=== PATIENT | male | born 1975 | race Caucasian/White ===

== ENCOUNTER 2021-03-18 09:44 | Emergency (ER) | payer MEDICAID ==
[2021-03-18] MEDS ORDERED: Oxymetazoline 0.05% Nasal Spray 30 ML Bottle NAS ONE (10:17)
[2021-03-18] MEDS ORDERED: Sodium Chloride 0.9% 10 ML Syringe FLUSH PRN (10:27)
--- NOTE | 2021-03-18 10:29 | EDM.PDOC ---
ED HPI GENERAL MEDICAL PROBLEM - General Chief Complaint: ENT Problem Stated Complaint: BLOODY NOSE Time Seen by Provider: 03/18/21 10:17 Source of Information: Reports: Patient, RN Notes Reviewed History Limitations: Reports: No Limitations - History of Present Illness INITIAL COMMENTS - FREE TEXT/NARRATIVE: 46-year-old gentleman presents emergency department day complaint of nosebleed, he states that nosebleeds all of his life is usually able to get him to stop himself. However this particular event started last night he has been dealing with pressure and trying to get it stopped by himself but he has been unsuccessful. He takes no blood thinners he is never visited with the ear nose and throat he does feel lightheaded and weak - Related Data Allergies Allergy/AdvReac Type Severity Reaction Status Date / Time acetaminophen Allergy Unknown Cannot Verified 03/18/21 09:55 Remember Home Meds: Home Meds Multivitamin with Minerals [Multiple Vitamin] 1 tab PO DAILY 01/28/21 [History] Furosemide 40 mg PO DAILY 03/18/21 [History] Spironolactone [Aldactone] 50 mg PO DAILY 03/18/21 [History] Past Medical History HEENT History: Reports: Impaired Vision Cardiovascular History: Reports: Heart Failure Respiratory History: Reports: SOB Gastrointestinal History: Reports: Cirrhosis, Other (See Below) Other Gastrointestinal History: accities Musculoskeletal History: Reports: Fracture Psychiatric History: Reports: Anxiety - Past Surgical History HEENT Surgical History: Reports: None Respiratory Surgical History: Reports: None GI Surgical History: Reports: None Musculoskeletal Surgical History: Reports: Other (See Below) Other Musculoskeletal Surgeries/Procedures:: left leg pins plates and rods. Rods removed once healed Social & Family History - Tobacco Use Tobacco Use Status *Q: Never Tobacco User - Caffeine Use Caffeine Use: Reports: None - Recreational Drug Use Recreational Drug Use: No ED ROS ENT - Review of Systems Review Of Systems: See Below Constitutional: Reports: No Symptoms HEENT: Reports: Nosebleed Respiratory: Reports: No Symptoms Cardiovascular: Reports: Lightheadedness GI/Abdominal: Reports: Nausea ED EXAM, ENT - Physical Exam Exam: See Below Exam Limited By: No Limitations General Appearance: Alert, Mild Distress Nose: Active Bleeding, Dried Blood Mouth/Throat: Normal Inspection, Normal Gums, Normal Lips, Normal Oropharynx, Normal Teeth Respiratory/Chest: No Respiratory Distress ED ENT PROCEDURES - Epistaxis Procedure Indication: Epistaxis Recent anticoagulants/antiplatlets: No Uncontrolled HTN: No Recent septal/nasal surgery: No Site of bleeding: Right Nare Clearing of clots: Patient Blew Nose Topical Meds: Phenylephrine Anterior Packing: Nasal Tampon Posterior packing: Long Inflatable Nasal Tampon Complications: No Course - Vital Signs Last Recorded V/S: Last Vital Signs Temp 97.9 F 03/18/21 14:24 Pulse 78 03/18/21 14:24 Resp 15 03/18/21 14:24 BP 132/99 H 03/18/21 14:24 Pulse Ox 100 03/18/21 14:24 - Orders/Labs/Meds Orders: Active Orders 24 hr Category Date Time Status Peripheral IV Care [RC] . DIRECTED Care 03/18/21 10:27 Active Sodium Chloride 0.9% [Normal Saline] 1,000 ml Med 03/18/21 10:30 Active IV ASDIRECTED Sodium Chloride 0.9% [Saline Flush] Med 03/18/21 10:27 Active 10 ml FLUSH ASDIRECTED PRN Peripheral IV Insertion Adult [OM.PC] Urgent Oth 03/18/21 10:27 Ordered Transfuse Red Blood Cells [COMM] Stat Oth 03/18/21 12:10 Ordered Medication Orders Sodium Chloride (Normal Saline) 1,000 mls @ 999 mls/hr IV ASDIRECTED [facility] Last Admin: 03/18/21 10:35 Dose: 999 mls/hr Documented by: RUBEN Sodium Chloride (Sodium Chloride 0.9% 10 Ml Syringe) 10 ml FLUSH ASDIRECTED PRN PRN Reason: Keep Vein Open Last Admin: 03/18/21 10:35 Dose: 10 ml Documented by: [id number] Labs: Laboratory Tests 03/18/21 03/18/21 03/18/21 Range/Units 10:52 10:52 11:00 WBC 4.0 L (4.5-11.0) K/uL RBC 2.05 L (4.30-5.90) M/uL Hgb 7.2 L D (12.0-15.0) g/dL Hct 21.1 L (40.0-54.0) % MCV 103 H (80-98) fL MCH 35 H (27-31) pg MCHC 34 (32-36) % Plt Count 32 L (150-400) K/uL PT 16.0 H (9.2-10.6) sec INR 1.6 Sodium (140-148) mmol/L Potassium (3.6-5.2) mmol/L Chloride (100-108) mmol/L Carbon Dioxide (21-32) mmol/L Anion Gap (5.0-14.0) mmol/L BUN (7-18) mg/dL Creatinine (0.8-1.3) mg/dL Est Cr Clr Drug Dosing mL/min Estimated GFR (MDRD) (>60) Glucose (74-106) mg/dL Lactic Acid 1.8 (0.4-2.0) mmol/L Calcium (8.5-10.1) mg/dL Blood Type Gel Antibody Screen Crossmatch 03/18/21 03/18/21 Range/Units 11:00 12:10 WBC (4.5-11.0) K/uL RBC (4.30-5.90) M/uL Hgb (12.0-15.0) g/dL Hct (40.0-54.0) % MCV (80-98) fL MCH (27-31) pg MCHC (32-36) % Plt Count (150-400) K/uL PT (9.2-10.6) sec INR Sodium 120 L (140-148) mmol/L Potassium 3.4 L (3.6-5.2) mmol/L Chloride 84 L (100-108) mmol/L Carbon Dioxide 29 (21-32) mmol/L Anion Gap 10.4 (5.0-14.0) mmol/L BUN 21 H (7-18) mg/dL Creatinine 0.9 (0.8-1.3) mg/dL Est Cr Clr Drug Dosing 100.28 mL/min Estimated GFR (MDRD) > 60 (>60) Glucose 139 H (74-106) mg/dL Lactic Acid (0.4-2.0) mmol/L Calcium 8.5 (8.5-10.1) mg/dL Blood Type O POSITIVE Gel Antibody Screen Negative Crossmatch See Detail Meds: Medications Generic Name Dose Route Start Last Admin Trade Name Freq PRN Reason Stop Dose Admin Sodium Chloride 1,000 mls @ 999 mls/hr 03/18/21 10:30 03/18/21 10:35 Normal Saline IV 999 mls/hr ASDIRECTED MARYELLEN Administration Sodium Chloride 10 ml 03/18/21 10:27 03/18/21 10:35 Sodium Chloride 0.9% 10 Ml Syringe FLUSH 10 ml ASDIRECTED PRN Administration Keep Vein Open Discontinued Medications Generic Name Dose Route Start Last Admin Trade Name Freq PRN Reason Stop Dose Admin Oxymetazoline HCl 1 ml 03/18/21 10:17 03/18/21 10:27 Oxymetazoline 0.05% Nasal [place] 30 Ml Bottle CARLOS 03/18/21 10:18 1 ml ONETIME ONE Administration Departure - Departure Time of Disposition: 14:39 Disposition: Home, Self-Care 01 Condition: Fair Clinical Impression: Epistaxis - Discharge Information Instructions: Nosebleed, Adult, [id number] Referrals: PCP,None [Primary Care Provider] - Forms: ED Department Discharge Additional Instructions: Continue on your current medications, add or remove air as needed for comfort and bleeding control, recommend balloon removal in 48 hours follow-up with your primary care for further evaluation, keep your appointment with gastroenterology tomorrow call or return to the emergency department worsening of symptoms Sepsis Event Note (ED) - Evaluation Sepsis Screening Result: No Definite Risk - Focused Exam Vital Signs: Vital Signs Temp Temp Pulse Resp BP Pulse Ox 03/18/21 14:24 97.9 F 78 15 132/99 H 100 03/18/21 14:08 97.9 F 87 15 127/80 100 03/18/21 13:53 97.8 F 81 15 126/82 100 03/18/21 13:38 97.8 F 84 15 125/76 100 03/18/21 13:24 98 F 90 15 121/78 03/18/21 11:36 87 16 124/79 100 03/18/21 11:08 93 16 108/74 100 03/18/21 10:40 99/65 03/18/21 10:01 97.2 F 136 H 18 105/68 98 03/18/21 09:52 97.2 F 136 H 18 105/68 98 - My Orders Last 24 Hours: My Active Orders 03/18/21 10:27 Peripheral IV Care [RC] . DIRECTED Sodium Chloride 0.9% [Saline Flush] 10 ml FLUSH ASDIRECTED PRN Peripheral IV Insertion Adult [OM.PC] Urgent 03/18/21 10:30 Sodium Chloride 0.9% [Normal Saline] 1,000 ml IV ASDIRECTED 03/18/21 12:10 Transfuse Red Blood Cells [COMM] Stat - Assessment/Plan Last 24 Hours: My Active Orders 03/18/21 10:27 Peripheral IV Care [RC] . DIRECTED Sodium Chloride 0.9% [Saline Flush] 10 ml FLUSH ASDIRECTED PRN Peripheral IV Insertion Adult [OM.PC] Urgent 03/18/21 10:30 Sodium Chloride 0.9% [Normal Saline] 1,000 ml IV ASDIRECTED 03/18/21 12:10 Transfuse Red Blood Cells [COMM] Stat Plan: Assessment Acuity = acute Site and laterality = epistaxis complicated the patient with known history of alcohol cirrhosis Etiology = unknown Manifestations = acute anemia Location of injury = Home Lab values = hemoglobin low at 4.0 consistent with leukopenia hemoglobin low at 7.2 consistent with acute anemia platelets low at 32 consistent with thrombocytopenia sodium low at 120 consistent with hyponatremia potassium low at 3.4 consistent with hypokalemia lactic acid normal 1.8 Plan He did admit to me that he was having some bright red blood per rectum he attributes this to his hemorrhoids he has never had a colonoscopy. I think the bleeding is multifactorial causing the anemia bright red blood per rectum acute epistaxis for over 12 hours in combination with the extremely low platelets put him at severe risk for bleeding. 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
[2021-03-18] MEDS ORDERED: Sodium Chloride 0.9% 1,000 ML IV SCH (10:30)
== END 2021-03-18 15:34 | disposition home or self-care (01) ==
LOC: JP.ED 09:44
DX: R04.0 Epistaxis (principal); I50.9 Heart failure, unspecified; Z88.6 Allergy status to analgesic agent
CPT/HCPCS: 36415; 36430; 80048; 83605; 85027; 85610; 86850; 86900; 86901; 86920; 86922; 99284; A9270; J7030; P9016

== ENCOUNTER 2021-04-06 15:16 | Emergency (ER) | payer MEDICAID ==
[2021-04-06] MEDS: Silver Nitrate Applicator Each ONE (16:40)
[2021-04-06] MEDS: Oxymetazoline 0.05% Nasal Spray 30 ML Bottle NAS ONE (16:50)
[2021-04-06] MEDS: Silver Nitrate Applicator Each TOP ONE (17:48)
== END 2021-04-06 17:49 | disposition home or self-care (01) ==
LOC: JP.ED 15:16
DX: R04.0 Epistaxis (principal); I50.9 Heart failure, unspecified; Z88.6 Allergy status to analgesic agent
CPT/HCPCS: 30901; 36415; 85027; 86850; 86900; 86901; 99282; 99283; A9270-GY

== ENCOUNTER 2021-08-14 09:04 | Emergency (ER) | payer MEDICAID ==
[2021-08-14] MEDS ORDERED: Ondansetron 4 MG/2 ML SDV ONE (09:43)
[2021-08-14] MEDS ORDERED: Ondansetron 4 MG/2 ML SDV IVPUSH ONE (09:44)
[2021-08-14] MEDS ORDERED: Sodium Chloride 0.9% 250 ML IV SCH (09:45)
[2021-08-14] MEDS ORDERED: LORazepam 2 MG/ML SDV IVPUSH ONE (09:46)
[2021-08-14] MEDS ORDERED: Sodium Chloride 0.9% 1,000 ML IV SCH ×2 (10:15→11:15)
[2021-08-14 10:57] LABS: CORONAVIRUS COVID-19 NAA NEGATIVE (NEGATIVE)
[2021-08-14] MEDS ORDERED: Potassium Chloride 20 MEQ Tab.ER PO ONE (12:20)
== END 2021-08-14 12:45 | disposition home or self-care (01) ==
LOC: JP.ED 09:04
DX: K74.60 Unspecified cirrhosis of liver (principal); E86.0 Dehydration; R79.89 Other specified abnormal findings of blood chemistry; Z88.8 Allergy status to other drugs, medicaments and biological substances; Z20.822 Contact with and (suspected) exposure to COVID-19
CPT/HCPCS: 0241U; 36415; 71045; 71045-26; 80053; 83690; 85025; 93005; 93010; 96361; 96374; 96375; 99284; 99284-25; J2060; J2405; J7030; J7050

== ENCOUNTER 2022-07-19 09:25 | Emergency (ER) | payer MEDICAID ==
[2022-07-19 10:21] LABS: BASOPHILS PERCENT AUTO 0.2 % (0.1-1.3); HEMATOCRIT 22.5 % (38.4-49.7); HEMOGLOBIN 7.3 g/dL (12.9-16.9); IMMATURE GRAN ABSOLUTE AUTO 0.03 K/uL (0.00-0.23); IMMATURE GRAN PERCENT AUTO 0.6 % (0.0-0.7); LYMPHOCYTES ABSOLUTE AUTO 0.54 K/uL (0.8-3.3); LYMPHOCYTES PERCENT AUTO 11.7 % (11.4-47.7); MEAN CORPUSCULAR HGB CONC 32.4 g/dL (31.6-35.5); MEAN CORPUSCULAR VOLUME 101.8 fL (81.4-99.0); MONOCYTES ABSOLUTE AUTO 0.47 K/uL (0.20-0.90); MONOCYTES PERCENT AUTO 10.2 % (3.3-12.6); NEUTROPHILS ABSOLUTE AUTO 3.57 K/uL (1.0-7.6); NEUTROPHILS PERCENT AUTO 77.3 % (40.0-78.1); RED BLOOD CELL COUNT 2.21 M/uL (4.14-5.76); WHITE BLOOD CELL COUNT,WBC 4.6 K/uL (3.2-11.0)
[2022-07-19 10:23] LABS: BASOPHILS ABSOLUTE AUTO 0.01 K/uL (0.00-0.10); PLATELET COUNT,PLT 27 K/uL (130-375)
[2022-07-19 10:36] LABS: INR 1.3; PROTHROMBIN TIME 12.5 sec (9.2-10.6)
[2022-07-19 10:43] LABS: A/G RATIO 0.7 (1.2-2.2); ALANINE AMINOTRANSFERASE,ALT 29 U/L (12-78); ALBUMIN 2.9 g/dL (3.4-5.0); ALKALINE PHOSPHATASE 180 U/L (46-116); ASPARTATE AMNIOTRANSFERASE,AST 70 U/L (15-37); BILIRUBIN TOTAL 1.5 mg/dL (0.2-1.0); BLOOD UREA NITROGEN,BUN 9 mg/dL (7-18); CALCIUM 8.5 mg/dL (8.5-10.1); CARBON DIOXIDE,CO2 27 mmol/L (21-32); CHLORIDE,CL 95 mmol/L (100-108); CREATININE 0.8 mg/dL (0.8-1.3); EST CRCL DRUG DOSING (CG) 111.63 mL/min; ESTIMATED GFR 111 mL/min (>60); GLUCOSE RANDOM 119 mg/dL (74-106); POTASSIUM,K 3.7 mmol/L (3.6-5.2); PROTEIN TOTAL,TP 6.9 g/dL (6.4-8.2); SODIUM,NA 132 mmol/L (140-148)
[2022-07-19 10:48] LABS: ANION GAP 13.7 mmol/L (5.0-14.0)
[2022-07-19 10:58] LABS: CORONAVIRUS COVID-19 NAA NEGATIVE (NEGATIVE); INFLUENZA A NAA NEGATIVE (NEGATIVE); INFLUENZA B NAA NEGATIVE (NEGATIVE); RESPIRATORY SYNCYTIAL VIR NAA NEGATIVE (NEGATIVE)
== END 2022-07-19 11:42 | disposition home or self-care (01) ==
LOC: JP.ED 09:25
DX: D69.6 Thrombocytopenia, unspecified (principal); F10.20 Alcohol dependence, uncomplicated; Z88.8 Allergy status to other drugs, medicaments and biological substances; Z20.822 Contact with and (suspected) exposure to COVID-19; Y90.0 Blood alcohol level of less than 20 mg/100 ml
CPT/HCPCS: 0241U; 36415; 80053; 80307; 85025; 85610; 99283

== ENCOUNTER 2022-08-26 16:06 | Emergency (ER) | payer OTHER, MEDICAID ==
[2022-08-26] MEDS ORDERED: Sodium Chloride 0.9% 10 ML Syringe FLUSH PRN (16:09)
[2022-08-26] MEDS ORDERED: HYDROmorphone 1 MG/ML Syringe IVPUSH ONE ×2 (16:09→17:08)
[2022-08-26 16:17] LABS: BASOPHILS PERCENT AUTO 0.3 % (0.1-1.3); EOSINOPHILS PERCENT AUTO 0.6 % (0.0-5.4); HEMOGLOBIN 7.4 g/dL (12.9-16.9); IMMATURE GRAN PERCENT AUTO 0.6 % (0.0-0.7); LYMPHOCYTES ABSOLUTE AUTO 1.13 K/uL (0.8-3.3); LYMPHOCYTES PERCENT AUTO 35.4 % (11.4-47.7); MEAN CORPUSCULAR HEMOGLOBIN 27.2 pg (31.6-35.5); MEAN CORPUSCULAR HGB CONC 30.8 g/dL (31.6-35.5); MEAN CORPUSCULAR VOLUME 88.2 fL (81.4-99.0); MONOCYTES PERCENT AUTO 9.4 % (3.3-12.6); NEUTROPHILS ABSOLUTE AUTO 1.71 K/uL (1.0-7.6); NEUTROPHILS PERCENT AUTO 53.7 % (40.0-78.1); PLATELET COUNT,PLT 33 K/uL (130-375); RED BLOOD CELL COUNT 2.72 M/uL (4.14-5.76); WHITE BLOOD CELL COUNT,WBC 3.2 K/uL (3.2-11.0)
[2022-08-26 16:22] LABS: BASOPHILS ABSOLUTE AUTO 0.01 K/uL (0.00-0.10); EOSINOPHILS ABSOLUTE AUTO 0.02 K/uL (0.00-0.40); IMMATURE GRAN ABSOLUTE AUTO 0.02 K/uL (0.00-0.23)
[2022-08-26 16:40] LABS: A/G RATIO 0.8 (1.2-2.2); ALANINE AMINOTRANSFERASE,ALT 35 U/L (12-78); ALBUMIN 3.4 g/dL (3.4-5.0); ALKALINE PHOSPHATASE 142 U/L (46-116); ASPARTATE AMNIOTRANSFERASE,AST 60 U/L (15-37); BILIRUBIN TOTAL 1.1 mg/dL (0.2-1.0); BLOOD UREA NITROGEN,BUN 8 mg/dL (7-18); CALCIUM 8.3 mg/dL (8.5-10.1); CARBON DIOXIDE,CO2 25 mmol/L (21-32); CHLORIDE,CL 102 mmol/L (100-108); CREATININE 0.9 mg/dL (0.8-1.3); ESTIMATED GFR 107 mL/min (>60); GLUCOSE RANDOM 95 mg/dL (74-106); INR 1.3; POTASSIUM,K 3.6 mmol/L (3.6-5.2); PROTEIN TOTAL,TP 7.5 g/dL (6.4-8.2); PROTHROMBIN TIME 12.5 sec (9.2-10.6); PTT,PARTIAL THROMBOPLSTIN TIME 26.7 sec (21.8-27.3); SODIUM,NA 139 mmol/L (140-148)
[2022-08-26 16:41] LABS: ANION GAP 15.6 mmol/L (5.0-14.0)
== END 2022-08-26 17:30 ==
LOC: JP.ED 16:06
DX: S72.002A Fracture of unspecified part of neck of left femur, initial encounter for closed fracture (principal); S70.12XA Contusion of left thigh, initial encounter; S70.02XA Contusion of left hip, initial encounter; S50.312A Abrasion of left elbow, initial encounter; I50.9 Heart failure, unspecified; Z88.6 Allergy status to analgesic agent; Z79.899 Other long term (current) drug therapy; Z20.822 Contact with and (suspected) exposure to COVID-19; W11.XXXA Fall on and from ladder, initial encounter
CPT/HCPCS: 36415; 71045; 72192; 80053; 85025; 85610; 85730; 86850; 86900; 86901; 87635; 96374; 99285; J1170; U0002

== ENCOUNTER 2024-10-03 09:45 | Inpatient (IN) | payer MEDICAID ==
[2024-10-03 10:33] LABS: RED BLOOD CELL COUNT 2.25 M/uL (4.14-5.76); WHITE BLOOD CELL COUNT,WBC 3.0 K/uL (3.2-11.0)
[2024-10-03 10:41] LABS: INR 1.6
[2024-10-03 10:48] LABS: A/G RATIO 0.6 (1.2-2.2); ALANINE AMINOTRANSFERASE,ALT 21 U/L (12-78); ASPARTATE AMNIOTRANSFERASE,AST 54 U/L (15-37); BILIRUBIN TOTAL 5.2 mg/dL (0.2-1.0); BLOOD UREA NITROGEN,BUN 7 mg/dL (7-18); CARBON DIOXIDE,CO2 18 mmol/L (21-32); CHLORIDE,CL 103 mmol/L (100-108); CREATININE 0.8 mg/dL (0.8-1.3); EST CRCL DRUG DOSING (CG) 109.25 mL/min; ESTIMATED GFR 109 mL/min (>60); GLUCOSE RANDOM 89 mg/dL (74-106); POTASSIUM,K 3.4 mmol/L (3.6-5.2); PROTEIN TOTAL,TP 5.6 g/dL (6.4-8.2); SODIUM,NA 132 mmol/L (140-148)
[2024-10-03 10:49] LABS: LACTIC ACID 1.4 mmol/L (0.4-2.0)
[2024-10-03] MEDS: metroNIDAZOLE/Normal Saline 500 MG in Premix Bag 1 BAG IV SCH (10:50)
[2024-10-03] MEDS: Lactated Ringers 1,000 ML IV SCH (10:51)
[2024-10-03 11:09] LABS: TROPONIN I HIGH SENSITIVITY 9.8 pg/mL (<=60.3)
[2024-10-03 11:10] LABS: PRO B-TYPE NATRIUR PEPT,BNPPRO 853.0 pg/mL (5-125)
[2024-10-03 11:14] LABS: PLATELET COUNT,PLT 19 K/uL (130-375)
[2024-10-03 11:16] LABS: BAND ABSOLUTE MAN 0.12 K/uL; BAND PERCENT MAN 4 % (5-11); LYMPHOCYTES ABSOLUTE MAN 0.54 K/uL (0.8-3.3); LYMPHOCYTES PERCENT MAN 18 % (24-44); NEUTROPHILS ABSOLUTE MAN 2.34 K/uL (1.0-7.6); SEG NEUTROPHILS PERCENT MAN 78 % (36-66)
[2024-10-03 14:50] LABS: IRON,FE 48 ug/dL (65-175); PERCENT FE SATURATION 27 % (20-55)
[2024-10-03] MEDS ORDERED: Ondansetron 4 MG Tab.DIS PO PRN (15:58)
[2024-10-03] MEDS ORDERED: Sennosides/Docusate Sodium 50-8.6 MG Tab PO PRN (15:58)
[2024-10-03] MEDS ORDERED: Ondansetron 4 MG/2 ML SDV IV PRN (15:58)
[2024-10-03] MEDS ORDERED: Magnesium Hydroxide 400 MG/5 ML Susp 30 ML Cup PO PRN (15:58)
[2024-10-03] MEDS: Potassium Chloride 20 MEQ Tab.ER PO ONE (16:46)
[2024-10-03] MEDS: Lactulose Soln 10 GM/15 ML 15 ML UD Cup PO SCH (20:37)
[2024-10-03] MEDS: Lactobacillus Rhamnosus GG (Probiotic) Cap PO SCH (20:37)
[2024-10-04 06:10] LABS: RED BLOOD CELL COUNT 2.44 M/uL (4.14-5.76); WHITE BLOOD CELL COUNT,WBC 2.5 K/uL (3.2-11.0)
[2024-10-04 06:12] LABS: PLATELET COUNT,PLT 21.0 K/uL (130-375)
[2024-10-04 06:58] LABS: CHLORIDE,CL 103 mmol/L (100-108); POTASSIUM,K 3.6 mmol/L (3.6-5.2); SODIUM,NA 131 mmol/L (140-148)
[2024-10-04 07:19] LABS: A/G RATIO 0.6 (1.2-2.2); ALANINE AMINOTRANSFERASE,ALT 18 U/L (12-78); ASPARTATE AMNIOTRANSFERASE,AST 41 U/L (15-37); BILIRUBIN TOTAL 4.8 mg/dL (0.2-1.0); BLOOD UREA NITROGEN,BUN 8 mg/dL (7-18); CARBON DIOXIDE,CO2 18 mmol/L (21-32); CREATININE 0.7 mg/dL (0.8-1.3); EST CRCL DRUG DOSING (CG) 125.32 mL/min; ESTIMATED GFR 114 mL/min (>60); GLUCOSE RANDOM 94 mg/dL (74-106); PROTEIN TOTAL,TP 5.3 g/dL (6.4-8.2)
[2024-10-04] MEDS: Potassium Chloride 20 MEQ Tab.ER PO SCH (08:43)
[2024-10-04] MEDS: Multivitamins with Iron/Calcium/Folic Acid/Minerals Tab PO SCH (08:43)
[2024-10-04 13:25] LABS: APPEARANCE,URINE CLEAR (CLEAR); GLUCOSE,URINE NEGATIVE (NEGATIVE); OCCULT BLOOD,URINE NEGATIVE (NEGATIVE)
[2024-10-04 13:31] LABS: SQUAMOUS EPITHELIAL CELLS,UR RARE /HPF; UROTHELIAL CELLS,URINE NOT SEEN /HPF
[2024-10-04] MEDS: Magnesium Sulfate 2 GM/50 mL 2 GM in Premix Bag 1 BAG IV SCH (14:48)
[2024-10-05 05:51] LABS: RED BLOOD CELL COUNT 2.82 M/uL (4.14-5.76); WHITE BLOOD CELL COUNT,WBC 2.8 K/uL (3.2-11.0)
[2024-10-05 05:53] LABS: PLATELET COUNT,PLT 20.0 K/uL (130-375)
[2024-10-05 06:09] LABS: A/G RATIO 0.5 (1.2-2.2); ALANINE AMINOTRANSFERASE,ALT 21 U/L (12-78); ASPARTATE AMNIOTRANSFERASE,AST 43 U/L (15-37); BILIRUBIN TOTAL 5.6 mg/dL (0.2-1.0); BLOOD UREA NITROGEN,BUN 7 mg/dL (7-18); CARBON DIOXIDE,CO2 18 mmol/L (21-32); CHLORIDE,CL 103 mmol/L (100-108); CREATININE 0.8 mg/dL (0.8-1.3); EST CRCL DRUG DOSING (CG) 109.65 mL/min; ESTIMATED GFR 109 mL/min (>60); GLUCOSE RANDOM 89 mg/dL (74-106); POTASSIUM,K 3.4 mmol/L (3.6-5.2); PROTEIN TOTAL,TP 6.0 g/dL (6.4-8.2); SODIUM,NA 132 mmol/L (140-148); VANCOMYCIN RANDOM 15.2 ug/mL (0.0-50.0)
[2024-10-05] MEDS: Potassium Chloride 20 MEQ Tab.ER PO ONE (09:02)
[2024-10-06 05:42] LABS: RED BLOOD CELL COUNT 2.71 M/uL (4.14-5.76); WHITE BLOOD CELL COUNT,WBC 2.0 K/uL (3.2-11.0)
[2024-10-06 05:44] LABS: PLATELET COUNT,PLT 19.0 K/uL (130-375)
[2024-10-06 05:57] LABS: BLOOD UREA NITROGEN,BUN 8.0 mg/dL (7-18); CARBON DIOXIDE,CO2 20.0 mmol/L (21-32); CHLORIDE,CL 102.0 mmol/L (100-108); CREATININE 0.8 mg/dL (0.8-1.3); EST CRCL DRUG DOSING (CG) 109.65 mL/min; ESTIMATED GFR 109.0 mL/min (>60); GLUCOSE RANDOM 90.0 mg/dL (74-106); POTASSIUM,K 3.5 mmol/L (3.6-5.2); SODIUM,NA 131.0 mmol/L (140-148)
[2024-10-06] MEDS: Potassium Chloride 20 MEQ Tab.ER PO SCH (09:37)
== END 2024-10-06 10:45 | disposition home or self-care (01) | DRG 603 ==
LOC: JP.ED 09:45 → JP.MS 14:44 → OBSVTOIN 18:20
PROVIDERS: ADMIT Internal Medicine; ATTEND Internal Medicine
PROC: 30233N1 Transfusion of Nonautologous Red Blood Cells into Peripheral Vein, Percutaneous Approach (ICD-10-PCS; principal; 2024-10-03)
PROC: 3E03329 Introduction of Other Anti-infective into Peripheral Vein, Percutaneous Approach (ICD-10-PCS; 2024-10-03)
DX: L03.116 Cellulitis of left lower limb (principal); D61.818 Other pancytopenia; K76.6 Portal hypertension; R78.81 Bacteremia; K76.82 Hepatic encephalopathy; E87.6 Hypokalemia; D63.8 Anemia in other chronic diseases classified elsewhere; Z88.6 Allergy status to analgesic agent; Z79.899 Other long term (current) drug therapy; H54.7 Unspecified visual loss; I50.9 Heart failure, unspecified; F41.9 Anxiety disorder, unspecified; Z98.890 Other specified postprocedural states; F17.200 Nicotine dependence, unspecified, uncomplicated; K70.31 Alcoholic cirrhosis of liver with ascites; E86.0 Dehydration; B95.61 Methicillin susceptible Staphylococcus aureus infection as the cause of diseases classified elsewhere
CPT/HCPCS: 36415; 36430; 71045; 71045-26; 80048; 80053; 80202; 81001; 82140; 82728; 83550; 83605; 83735; 83880; 84484; 85025; 85027; 85610; 86140; 86850; 86900; 86901; 86920; 86922; 87040; 87077; 87186; 93005; 93306; 96365; 96366; 96367; 96368; 99222; 99232; 99239; 99285-25; A9270-GY; G0378; J0692; J0696; J1836; J3373; J3475; J7050; J7120; P9016

== ENCOUNTER 2024-10-16 19:58 | Emergency (ER) | payer MEDICAID ==
[2024-10-16] MEDS: LORazepam 2 MG/ML SDV IM ONE (20:01)
[2024-10-16] MEDS: propofoL 1,000 MG/100 ML 100 ML IV SCH (20:20)
[2024-10-16] MEDS ORDERED: Naloxone 0.4 MG/ML SDV IVPUSH PRN (20:21)
[2024-10-16 20:48] LABS: BASOPHILS ABSOLUTE AUTO 0.05 K/uL (0.00-0.10); BASOPHILS PERCENT AUTO 0.5 % (0.1-1.3); EOSINOPHILS ABSOLUTE AUTO 0.14 K/uL (0.00-0.40); EOSINOPHILS PERCENT AUTO 1.4 % (0.0-5.4); IMMATURE GRAN PERCENT AUTO 0.4 % (0.0-0.7); LYMPHOCYTES ABSOLUTE AUTO 6.22 K/uL (0.8-3.3); LYMPHOCYTES PERCENT AUTO 61.0 % (11.4-47.7); MONOCYTES ABSOLUTE AUTO 0.74 K/uL (0.20-0.90); MONOCYTES PERCENT AUTO 7.3 % (3.3-12.6); NEUTROPHILS ABSOLUTE AUTO 3.01 K/uL (1.0-7.6); NEUTROPHILS PERCENT AUTO 29.4 % (40.0-78.1); PLATELET COUNT,PLT 40 K/uL (130-375); RED BLOOD CELL COUNT 2.96 M/uL (4.14-5.76); WHITE BLOOD CELL COUNT,WBC 10.2 K/uL (3.2-11.0)
[2024-10-16 20:50] LABS: IMMATURE GRAN ABSOLUTE AUTO 0.04 K/uL (0.00-0.23)
[2024-10-16 21:02] LABS: BASE EXCESS ARTERIAL -10.3 mm/L; BICARBONATE,ARTERIAL 18.3 mmol/L (22.0-26.0); O2 SATURATION ARTERIAL 96.9 % (95.0-98.0); OXYHEMOGLOBIN 93.2 %; PCO2 ARTERIAL 56.4 mmHg (35.0-42.0); PO2 ARTERIAL 129.0 mmHg (75.0-100.0); TOTAL HEMOGLOBIN 9.5 g/dL (13.5-18.0)
[2024-10-16 21:07] LABS: INR 1.3
[2024-10-16 21:11] LABS: A/G RATIO 0.6 (1.2-2.2); ALANINE AMINOTRANSFERASE,ALT 32 U/L (12-78); ASPARTATE AMNIOTRANSFERASE,AST 80 U/L (15-37); BILIRUBIN TOTAL 3.8 mg/dL (0.2-1.0); BLOOD UREA NITROGEN,BUN 10 mg/dL (7-18); CARBON DIOXIDE,CO2 20 mmol/L (21-32); CHLORIDE,CL 109 mmol/L (100-108); CREATINE KINASE,CK 171 U/L (39-308); CREATININE 0.8 mg/dL (0.8-1.3); EST CRCL DRUG DOSING (CG) 123.94 mL/min; ESTIMATED GFR 109 mL/min (>60); GLUCOSE RANDOM 142 mg/dL (74-106); POTASSIUM,K 3.7 mmol/L (3.6-5.2); PROTEIN TOTAL,TP 7.3 g/dL (6.4-8.2); SODIUM,NA 144 mmol/L (140-148); TROPONIN I HIGH SENSITIVITY 7.4 pg/mL (<=60.3)
[2024-10-16] MEDS: LORazepam 2 MG/ML SDV IVPUSH ONE (21:34)
[2024-10-16 21:41] LABS: AMPHETAMINES SCREEN, URINE NEGATIVE (NEGATIVE); METHADONE SCREEN, URINE NEGATIVE (NEGATIVE); METHAMPHETAMINES SCREEN, URINE NEGATIVE (NEGATIVE); OXYCODONE SCREEN,URINE NEGATIVE (NEGATIVE); PROPOXYPHENE SCREEN,URINE NEGATIVE (NEGATIVE); THC SCREEN,URINE 50 NG/ML PRESUMPTIVE POSITIVE (NEGATIVE)
[2024-10-16] MEDS: fentaNYL 100 MCG/2 ML SDV IVPUSH ONE (22:10)
[2024-10-16] MEDS: LORazepam 2 MG/ML SDV ONE (23:33)
[2024-10-17] MEDS: Propofol 200 MG/20 ML SDV IVPUSH ONE (07:24)
[2024-10-17] MEDS: LORazepam 2 MG/ML SDV IVPUSH ONE (07:26)
[2024-10-17] MEDS: LORazepam 2 MG/ML SDV ONE (07:38)
[2024-10-17] MEDS: propofoL 1,000 MG/100 ML 100 ML ONE (07:38)
== END 2024-10-16 22:57 | disposition other institution (70) ==
LOC: JP.ED 19:58
DX: R56.9 Unspecified convulsions (principal); F10.239 Alcohol dependence with withdrawal, unspecified; I50.9 Heart failure, unspecified; Y90.6 Blood alcohol level of 120-199 mg/100 ml; Z79.899 Other long term (current) drug therapy; Z88.6 Allergy status to analgesic agent
CPT/HCPCS: 30901; 31500; 36415; 36430; 36600; 51702; 71045; 80053; 80305; 80307; 82550; 82803; 83605; 84484; 85025; 85610; 86850; 86900; 86901; 86920; 86922; 96365; 96366; 96372; 96374; 96375; 99285; 99291; 99292; J2060; J2704; J3010; J7030; P9016; P9017; J3490